=== PATIENT | male | born 1975 | race Caucasian/White ===

== ENCOUNTER → 2016-09-16 | Outpatient (CLI) | payer MEDICARE ==
[~2016-09-16] MED LIST: DAYTIME COLD-F1 EACH PO; EXCEDRIN EXTRA1 TAB PO; GLIPIZIDE10 MG PO; METFORMIN HCL850 MG PO
--- NOTE | ~2016-09-16 | EKG ---
PATIENT: AGUSTIN CARLTON UNIT #: [id number] Ventricular Rate: 88 BPM Atrial Rate: 88 BPM P-R Interval: 152 ms QRS Duration: 96 ms Q-T Interval: 366 ms QTC Calculation(Bezet): 442 ms P [place]: 49 degrees Calculated R [place]: 5 degrees Calculated T [place]: 38 degrees Diagnosis Line: Normal sinus rhythm Diagnosis Line: Non Diagnostic Q in Lead Inferior leads Otherwise Diagnosis Line: normal ECG No previous ECGs available Diagnosis Line: Confirmed by LAKESHA SWANN MD ([id number]) on 09/17/2016 Diagnosis Line: 9:36:38 AM INTERPRETING MD: HUE HARRIS
[2016-09-16 13:28] LABS: CALCIUM SERUM 9.5 mg/dL (8.4-10.2); CREATININE SERUM 0.8 mg/dL (0.6-1.4); GLOM FILT RATE Estimated 109.5 mL/min (>60); POTASSIUM 3.9 mmol/L (3.5-5.1)
== END | disposition home or self-care (01) ==
LOC: CAMB 11:47
PROVIDERS: Surgery
DX: Z01.818 Encounter for other preprocedural examination (principal); K62.5 Hemorrhage of anus and rectum; K60.2 Anal fissure, unspecified
CPT/HCPCS: 36415; 80048; 93005

== ENCOUNTER → 2016-09-23 | Day surgery (SDC) | payer MEDICARE ==
--- NOTE | ~2016-09-23 | OR ---
Unit #: [id number] #: [id number] Patient: AGUSTIN CARLTON [id number] [address] [address] [id number] O MR#: [id number] NAME: AGUSTIN CARLTON. ROOM: Date of Procedure: 09/23/2016 Admission Date: 09/23/2016 Surgeon: Jose Aleman M.D. : 1975 Attending Physician: Jose Aleman M.D. Referring Physician: Jose Aleman M.D. Primary Care Physician: Annamaria Robles OPERATIVE REPORT PREOPERATIVE DIAGNOSES 1. Intermittent rectal bleeding. 2. Posterior midline anal fissure. POSTOPERATIVE DIAGNOSES 1. Intermittent rectal bleeding. 2. Posterior midline anal fissure. PROCEDURE PERFORMED Colonoscopy to cecum. ANESTHESIA Monitored anesthesia care. FINDINGS The patient was found to have a posterior midline anal fissure. In addition, the patient was found to have a few sigmoid diverticula and mild internal hemorrhoids. SPECIMENS None. COMPLICATIONS None apparent. CONDITION The patient tolerated the procedure well. INDICATIONS FOR PROCEDURE The patient is a 40-year-old white male, who has severe pain with bowel movements going through the anal canal. On digital examination, he was very tender in the posterior midline and there was some scarring consistent with a posterior midline anal fissure. He presents at this time for evaluation by colonoscopy. DESCRIPTION OF PROCEDURE After obtaining informed consent, the patient was brought to the endoscopy suite and after adequate monitored anesthesia care, had the colonoscope placed through the anus and slowly advanced to the level of the cecum without difficulty with the lumen always in view. The cecum was normal as was the ileocecal valve. The ascending colon was normal as was the hepatic flexure, transverse colon, splenic flexure, and descending colon. Unit #: [id number] #: [id number] Patient: AGUSTIN CARLTON There were few scattered sigmoid diverticula present. The rectosigmoid and rectum were all within normal limits. On retroflexing in the rectum to the anorectal junction, the patient was found to have some mild internal hemorrhoids and what appeared to be a posterior midline anal fissure was able to be visualized. On pulling back through the anal canal, this was again visualized. On digital examination, the patient had good sphincter tone and very tender posterior midline area with some scarring consistent with a posterior midline anal fissure. The scope was removed without difficulty. The patient tolerated the procedure well, went from the endoscopy suite to recovery area in stable condition. RECOMMENDATIONS High-fiber diet, lots of liquids, tucks or wipes p.r.n. Diverticular sheet given. We will proceed with examination under anesthesia and lateral partial internal sphincterotomy later today. Dictated by... Haile Bryan/patrick TD: 09/23/2016 08:40 JOB #: [id number] CC: [facility] OPERATIVE REPORT Page 1 of 1 X Jose Aleman MD X PROCEDURE OPERATIVE NOTE
--- NOTE | ~2016-09-23 | OR ---
Unit #: [id number] #: [id number] Patient: AGUSTIN CARLTON [id number] [address] [place], [place] [address] [id number] O MR#: [id number] NAME: AGUSTIN CARLTON. ROOM: Date of Procedure: 09/23/2016 Admission Date: 09/23/2016 Surgeon: Jose Aleman M.D. : 1975 Attending Physician: Jose Aleman M.D. Referring Physician: Jose Aleman M.D. Primary Care Physician: Can Ku M.D. OPERATIVE REPORT PREOPERATIVE DIAGNOSIS Posterior midline anal fissure. POSTOPERATIVE DIAGNOSIS Posterior midline anal fissure. PROCEDURES PERFORMED 1. Examination under anesthesia. 2. Excision of posterior midline sentinel pile. 3. Left lateral partial internal sphincterotomy. ANESTHESIA General LMA anesthesia with 0.5% Marcaine plain local anesthesia. FINDINGS The patient had a posterior midline anal fissure with a sentinel pile. The sentinel pile was excised. A left lateral partial internal sphincterotomy was performed. SPECIMENS None. COMPLICATIONS None apparent. CONDITION The patient tolerated the procedure well. INDICATIONS FOR PROCEDURE The patient is a 41-year-old white male, who had colonoscopy earlier today for rectal bleeding and was found to have a posterior midline anal fissure. He presents this time for examination under anesthesia, possible left lateral partial internal sphincterotomy. DESCRIPTION OF PROCEDURE After obtaining informed consent as well as receiving preoperative antibiotics, the patient was brought to the operating room and after adequate general LMA anesthesia was obtained, was very carefully placed into the lithotomy position using candy-cane stirrups with all extremities manipulated very carefully and all extremities carefully padded. His perianal area and perineum were prepped and draped in a sterile fashion. His anal sphincter was gently dilated with KY jelly in 1, 2, and 3 Unit #: [id number] #: [id number] Patient: AGUSTIN CARLTON fingers. Using an anoscope, there was no obvious abnormality seen other than a posterior midline anal fissure and a small sentinel pile. The sentinel pile was excised with electrocautery with good hemostasis. At this point in time, a bivalve anal retractor was placed. The intersphincteric groove was felt on the left side. An 11-blade was used to pass in the intersphincteric groove with the blade parallel to the groove then was turned 90 degrees towards the anal opening. With a finger in the anal canal, the internal sphincter muscle was partially divided. The blade was rotated then back 90 degrees and removed. Pressure was held on the area with good hemostasis. The area was infiltrated with 0.5% Marcaine plain local anesthesia. A Gel-Foam pack was placed into the anal opening. There was good sphincter tone after the procedure. 4x4s were placed followed by an ABD pad and mesh panties. Needle counts, sponge counts, and instrument counts were all correct as reported by the scrub nurse x2. The patient went from the operative room to recovery room in stable condition. Dictated by... Haile Bryan/patrick TD: 09/24/2016 00:45 JOB #: [id number] [facility] OPERATIVE REPORT Page 1 of 1 X Jose Aleman MD X PROCEDURE OPERATIVE NOTE
== END | disposition home or self-care (01) ==
LOC: COPS 05:30
DX: K60.2 Anal fissure, unspecified (principal); K64.8 Other hemorrhoids; I10 Essential (primary) hypertension; E11.65 Type 2 diabetes mellitus with hyperglycemia; M10.9 Gout, unspecified; E78.5 Hyperlipidemia, unspecified; G43.909 Migraine, unspecified, not intractable, without status migrainosus; Z98.52 Vasectomy status; Z90.89 Acquired absence of other organs; Z87.442 Personal history of urinary calculi; Z79.899 Other long term (current) drug therapy
CPT/HCPCS: 82947; J2250; J2405; J3010

== ENCOUNTER 2017-01-15 09:00 | Emergency (ER) | payer MEDICARE ==
[~2017-01-15] VITALS: Ht 198.1 cm; Wt 138.3 kg
--- NOTE | ~2017-01-15 | CT4 ---
[facility] A Service of [facility] & [facility] RADIOLOGY TEXT RESULTS PATIENT: AGUSTIN CARLTON LOCATION: [facility] : [birth year] UNIT #: [id number] AGE: [address]: Ruth Herzog MD SEX: M ORDER DR: [id number] [facility] [address] [place], [place] [address] [id number] E MR#: [id number] Acc #: [id number] NAME: AGUSTIN CARLTON. : 1975 SEX: M STUDY DATE/TIME: 01/15/2017 12:19 UNIT: [facility] ROOM: STUDY DESCRIPTION: CT Abd and Pelv Wo Cont Attending Physician: Ruth Herzog M.D. Ordering Physician: Ruth Herzog M.D. Primary Care Physician: [facility]nam[facility] MEDICAL IMAGING REPORT This report is preliminary unless electronic signature is present EXAM Abdomen and pelvis CT without contrast. HISTORY Left flank pain onset at 8:30 today, history of stones, passed some gravel in the emergency room per patient. COMMENT CT of the abdomen and pelvis performed without IV or oral contrast media. Urinary tract stone protocol utilized. Lack of IV and oral contrast media limits evaluation for pathology other than urinary tract calculus disease. This CT exam was performed with one or more of the following radiation dose reduction techniques: automatic exposure control, adjustment of mA and/or kV according to patient size, and iterative reconstruction. COMPARISON Comparison is from 07/23/2016. FINDINGS There is a small amount of atelectasis at the lung bases dependently. There is a small amount of pericardial fluid or thickening anteriorly. There is mild diffuse fatty infiltration of the liver. The gallbladder, spleen, pancreas and adrenal glands are unremarkable. There is a small amount of bilateral perinephric stranding. There is a nonobstructing calculus in the right kidney that measures about 8 mm in diameter located at the inter to lower pole kidney. There is no right-sided hydronephrosis. There may be a tiny calcification along the right sacral ureter about 1-2 mm dimension, and there is a calculus either in the bladder or at the distal right ureterovesical junction about 3 mm in dimension. It is probably in the bladder since there is no longer right-sided hydronephrosis, and the patient is indicating that he is passing stones. No left-sided calculus or hydronephrosis is seen. There is no abdominal aortic aneurysm. There is mild atherosclerotic vascular STS. [facility] A Service of [facility] & [facility] RADIOLOGY TEXT RESULTS PATIENT: AGUSTIN CARLTON LOCATION: [facility] : [birth year] UNIT #: [id number] AGE: [address]: Ruth Herzog MD SEX: M ORDER DR: calcification. There is no free intraperitoneal air. The appendix is unremarkable where visualized. Nothing to suggest bowel obstruction. Some degenerative changes in the lower lumbar spine. IMPRESSION 1. There is a nonobstructing calculus right kidney about 8 mm dimension. There might be a tiny 1-2 mm calculus along the right-sided sacral ureter and there is about a 3 mm calcification in the bladder or at the distal right ureterovesical junction. There is no evidence for hydronephrosis. This would favor that the calculus is in the bladder rather than in the distal right ureter. Please correlate further clinically. No left renal calculus is appreciated. 2. Diffuse fatty infiltration of the liver. 3. No bowel obstruction. Visualized appendix is radiographically unremarkable. Dictated by... Nuha Yepez M.D. THIS IS AN ELECTRONICALLY VERIFIED REPORT Nuha Yepez M.D. at 01/16/2017 8:09 AM KRISTIN/fatuma TD: 01/15/2017 19:06 JOB #: [id number] MEDICAL IMAGING REPORT Page 1 of 1 COPY
--- NOTE | ~2017-01-15 | CR7 ---
[facility] A Service of [facility] RADIOLOGY TEXT RESULTS PATIENT: AGUSTIN CARLTON LOCATION: [facility] : [birth year] UNIT #: [id number] AGE: [address]: Ruth Herzog MD SEX: M ORDER DR: [id number] [id number] [facility]. [place], [place] [address] [id number] MR#: [id number] Acc #: [id number] NAME: AGUTSIN CARLTON. : 1975 SEX: M STUDY DATE/TIME: 01/15/2017 9:48 UNIT: [facility] ROOM: STUDY DESCRIPTION: CR Abdomen Single AP View Attending Physician: Ruth Herzog M.D. Ordering Physician: Ruth Herzog M.D. Primary Care Physician: Annamaria Robles MEDICAL IMAGING REPORT This report is preliminary unless electronic signature is present EXAM KUB. INDICATIONS Abdominal pain, nausea and vomiting. The pain is located across his low back. It started today. FINDINGS The exam is technically limited as the left renal shadow is not completely evaluated on both images. A tiny radiopaque density is seen overlying the left twelfth rib. It is unclear if this reflects stone or simply some material within the overlying bowel. Overlying bowel significantly limits the evaluation of the renal shadows. Certainly no distal ureteral or bladder stones are seen. IMPRESSION Technically limited examination due to the patient positioning and overlying bowel gas. There are potentially radiopaque densities projecting over the left twelfth rib but I am uncertain if this simply reflects overlying bowel material. If clinical concern persists further evaluation with CT is recommended. Dictated by... Alessandra Thomas M.D. THIS IS AN ELECTRONICALLY VERIFIED REPORT Alessandra Thomas M.D. at 01/16/2017 1:07 PM AFF/jt TD: 01/15/2017 16:21 JOB #: [id number] [facility] A Service of [facility] RADIOLOGY TEXT RESULTS PATIENT: AGUSTIN CARLTON LOCATION: [facility] #: [id number] : [birth year] UNIT #: [id number] AGE: [address]: Ruth Herzog MD SEX: M ORDER DR: MEDICAL IMAGING REPORT Page 1 of 1 COPY
[2017-01-15 09:53] LABS: BASOPHIL% 0.2 % (0-2.5); HEMATOCRIT 46.3 % (38.0-50.0); HEMOGLOBIN 15.7 gm/dL (13.0-16.0); LYMPHOCYTE# 2.4 X10e3 (1.0-3.5); MEAN CELL VOLUME 87.7 FL (83-96); MEAN CORPUSCULAR HEMOGLOBIN 29.6 PG (28-34); MEAN CORPUSCULAR HGB CONC 33.8 g/dL (30-36); MEAN PLATELET VOLUME 8.8 FL (6.5-11.5); MONOCYTE# 0.8 X10e3 (0-1.0); MONOCYTE% 7.2 % (3.0-12.0); NEUTROPHIL# 6.6 X10e3 (1.5-7.1); NEUTROPHIL% 61.6 % (40-75); PLATELET COUNT 244 X10e3 (140-420); RED BLOOD COUNT 5.28 X10e (3.90-5.60); RED CELL DISTRIBUTION WIDTH 13.5 % (11.0-15.5); WHITE BLOOD COUNT 10.7 X10e3 (4.0-10.5)
[2017-01-15 09:54] LABS: DIFF IND NO
[2017-01-15 10:26] LABS: ALBUMIN SERUM 4.3 g/dL (3.5-5.0); BILIRUBIN, DIRECT 0.1 mg/dL (0.0-0.2); BILIRUBIN,INDIRECT 1.2 mg/dL (0.0-0.9); BILIRUBIN,TOTAL 1.3 mg/dL (0.2-2.0); CALCIUM SERUM 9.2 mg/dL (8.4-10.2); CREATININE SERUM 0.8 mg/dL (0.6-1.4); GLOM FILT RATE Estimated 109.5 mL/min (>60); PROTEIN TOTAL SERUM 7.5 g/dL (6.0-8.3)
[2017-01-15 10:32] LABS: URINE SOURCE CLEAN CATCH
[2017-01-15 10:38] LABS: URINE APPEARANCE TURBID; URINE BILIRUBIN NEG (NEG); URINE BLOOD 3+ (NEG); URINE COLOR YELLOW; URINE GLUCOSE >1000 MG/DL (NEG); URINE KETONE NEG (NEG); URINE LEUKOCYTE ESTERASE NEG (NEG); URINE NITRATE NEG (NEG); URINE PROTEIN NEG (NEG); URINE SPECIFIC GRAVITY 1.022 (1.003-1.035); URINE UROBILINOGEN 0.2 MG/DL (NEG)
[2017-01-15 10:41] LABS: CULTURE INDICATED? NO; U HYALINE CASTS AUWI 0-2 /[LPF]; URINE BACTERIA AUWI NEG (NEGATIVE); URINE SQUAMOUS EPITHELIAL CELL NONE SEEN /[HPF]; UWBCS1 AUWI 0-2 (0-5)
[2017-01-15 11:03] LABS: AMPHETAMINE NEG (NEG); BARBITURATES NEG (NEG); BENZODIAZEPINES NEG (NEG); COCAINE NEG (NEG); MARIJUANA NEG (NEG); OPIATES NEG (NEG); TRICYCLIC ANTIDEPRESSANTS NEG (NEG); U METHADONE NEG (NEG)
== END 2017-01-15 13:48 | disposition home or self-care (01) ==
LOC: CED 09:00
PROVIDERS: Student in an Organized Health Care Education/Training Program
DX: R10.9 Unspecified abdominal pain (principal); E11.9 Type 2 diabetes mellitus without complications; I10 Essential (primary) hypertension; F17.200 Nicotine dependence, unspecified, uncomplicated
CPT/HCPCS: 36415; 74000; 74176; 80048; 80076; 80307; 81003; 85025; 96361; 96374; 96375; 99284; J1170; J2405

== ENCOUNTER 2017-01-25 12:40 | Emergency (ER) | payer MEDICARE ==
[~2017-01-25] VITALS: Ht 198.1 cm; Wt 138.3 kg
== END 2017-01-25 16:22 | disposition home or self-care (01) ==
LOC: CED 12:40
DX: G43.909 Migraine, unspecified, not intractable, without status migrainosus (principal)
CPT/HCPCS: 36415; 96361; 96374; 96375; 99284; J1885; J2550